=== PATIENT | male | born 1955 | race Caucasian/White ===

== ENCOUNTER → 2017-08-16 08:25 | Outpatient (CLI) | payer MEDICARE ==
[2013-05-05 12:21] VITALS: BMI 30.4
[~2017-08-16 08:25] MED LIST: ACTOS45 MG PO; GLUCOVANCE 5/501 TAB PO; INVOKANA100 MG PO; NITROSTAT0.4 MG SL; PLAVIX75 MG PO; PRAVACHOL40 MG PO; PRINIVIL20 MG PO
== END | disposition home or self-care (01) ==
LOC: D.CT 08:25
DX: R94.39 Abnormal result of other cardiovascular function study (principal)

== ENCOUNTER 2017-10-08 07:50 | Day surgery (SDC) | payer MEDICARE, MEDICAID ==
[~2017-10-08] VITALS: Ht 177.8 cm; Wt 86.4 kg
--- NOTE | ~2017-10-08 | OP ---
PATIENT NAME: ASIM RAMIREZ MEDICAL RECORD: [id number] :53 LOCATION:[facility] ADMISSION DATE: SURGEON: AMAYA JUNG DO DATE OF OPERATION: 10/08/2017 PROCEDURE: Colonoscopy with polypectomy. INDICATIONS FOR PROCEDURE: Change in bowel habits and constipation. SCOPE: Olympus video pediatric colonoscope. MEDICATIONS: Propofol 400 mg IV per anesthesia. WITHDRAWAL TIME: 26 minutes. ESTIMATED BLOOD LOSS: Minimal. COMPLICATIONS: None. FINDINGS: Informed consent was given. The patient was made comfortable with the above medication. After reaching an adequate level of sedation by slow IV push, the patient was placed on his left side. A digital rectal examination was performed and was normal. The endoscope was then advanced under direct visualization through the rectum to the cecum, confirmed by the presence of the appendiceal orifice and ileocecal valve. The endoscope was slowly withdrawn. Mucosa was carefully examined. The prep quality was poor. A significant amount of time was spent irrigating and suctioning fluid and stool for better visualization. There were 6 polyps visualized on today's examination. One was located in the cecum. It was a benign-appearing sessile polyp, which measured approximately 3 mm in diameter. It was removed using hot forceps in 1 piece and completely retrieved. Two polyps were located in the ascending colon. They ranged in size from 3 mm to 7 mm in diameter. The smaller of the 2 polyps was removed in 1 piece using hot forceps and completely retrieved. The larger of the 2 polyps was removed using endoscopic mucosal resection technique with an injection of normal saline for a pillow followed by a snare polypectomy in 1 piece. There were 2 polyps located in the transverse colon, which ranged in size from 3 mm - 5 mm in diameter. They were both removed using hot snare in 1 piece and completely retrieved. The final polyp was located in the rectum. It was benign-appearing sessile polyp, which measured approximately 2 mm - 3 mm in diameter. It was removed using hot forceps in 1 piece and completely retrieved. Retroflexion was performed in the rectum with a normal-appearing rectal wall. The endoscope was withdrawn from the patient. The patient tolerated the procedure well and there were no complications. IMPRESSION: 1. Multiple polyps as described above removed using various techniques including endoscopic mucosal resection, snare polypectomy, and forceps polypectomy. 2. Otherwise, normal colonoscopy. PLAN AND RECOMMENDATIONS: 1. Discharge home when recovery parameters are met. 2. Follow up biopsy specimen results. OPERATIVE REPORT [id number] ASIM RAMIREZ 3. High-fiber diet consisting 1-2 tablespoons of Metamucil daily regarding the patient's constipation. If this does not improve the constipation, we will consider medications including Linzess, Amitiza, or Trulance. 4. Continue current medications. 5. Recall colonoscopy in 2 years. TRANSINT:[id number] Voice Confirmation ID: [id number] DOCUMENT ID: [id number] AMAYA JUNG DO at 1444 CC: [id number] DICTATION DATE: 10/08/17 1139 LACE INSPECTOR: 10/08/[address] [facility] 10/08/17 [id number] [place] [address]
[2017-10-08 08:13] LABS: HEMATOCRIT 46.3 % (42.0-54.0); HEMOGLOBIN 15.7 g/dL (13.5-17.5); MCH 30.3 pg (26.0-34.0); MCHC 33.9 g/dL (31.0-37.0); MCV 89.4 fL (80.0-100.0); MEAN PLATELET VOLUME 10.8 fL (7.4-10.4); RBC 5.18 10x6/uL (4.20-6.10); RDW 13.5 % (11.5-14.5); WBC 10.9 10x3/uL (4.8-10.8)
[2017-10-08 08:28] LABS: CALC OSMOLALITY 282 mosm/kg (275-300); CALCIUM 9.2 mg/dL (8.5-10.1); CHLORIDE - SERUM 103 mmol/L (98-107); CREATININE - SERUM 0.9 mg/dL (0.6-1.3); GLUCOSE 205 mg/dL (74-106); POTASSIUM - SERUM 4.2 mmol/L (3.5-5.1); SODIUM 139 mmol/L (136-145); UREA NITROGEN 10 mg/dL (7-18); eGFR NON AFRICAN AMERICAN > 90 mL/min (90-120)
[2017-10-08 08:33] LABS: APTT 27.6 SECONDS (22.8-39.4); INR 1.02 (0.85-1.17)
[2017-10-08] MEDS ORDERED: COUMADIN5 MG PO (08:46)
[2017-10-08] MEDS ORDERED: ZANTAC150 MG (08:47)
[2017-10-08 08:54] VITALS: BP 166/97; Ht 177.8 cm; Wt 86.4 kg
== END 2017-10-08 12:25 | disposition home or self-care (01) ==
LOC: D.OPS 07:50
PROVIDERS: Anesthesiology
DX: K59.00 Constipation, unspecified (principal); D12.2 Benign neoplasm of ascending colon; D12.0 Benign neoplasm of cecum; D12.3 Benign neoplasm of transverse colon; K62.1 Rectal polyp; I25.10 Atherosclerotic heart disease of native coronary artery without angina pectoris; I10 Essential (primary) hypertension; E11.9 Type 2 diabetes mellitus without complications; Z01.812 Encounter for preprocedural laboratory examination